=== PATIENT | female | born 1995 | race Caucasian/White ===

== ENCOUNTER 2017-01-05 21:10 | Emergency (ER) | payer OTHER ==
[2017-01-05 21:45] VITALS: BP 135/100; PULSE 74; TEMP 98.5; BMI 24.7
--- NOTE | 2017-01-05 22:01 | PDOC ---
History of Present Illness - General History Source: Patient Exam Limitations: No Limitations - History of Present Illness Initial Comments: 01/05/17 23:14 The patient is a 21 year old female, with no significant past medical history, who presents today complaining of chest pain beginning last night when sleeping. The patient reports that the chest pain is constant, sharp, 6/10 in severity, and non radiating. Patient states the chest pain is exacerbated secondary to coughing, laughing, and taking a deep breath. The chest pain is not exacerbated on exertion. Patient states that this is her first time experiencing these symptoms of chest pain. Denies shortness of breath. Denies nausea, vomiting, fever, chills. Denies any recent illness. Denies history of blood clots. Denies calf pain or lower extremity swelling and pain. Denies talking any oral contraceptives. Allergies: none reported <Karissa Doran - Last Filed: 01/05/17 23:14> <Elisha Barnhart - Last Filed: 01/06/17 00:03> - General Chief Complaint: Pain Stated Complaint: CHEST PAIN Time Seen by Provider: 01/05/17 21:56 Past History <Karissa Doran - Last Filed: 01/05/17 23:14> - Past Medical History Other medical history: pt denies - Psycho/Social/Smoking Cessation Hx Suicidal Ideation: No Smoking History: Never smoked Information on smoking cessation initiated: No Hx Alcohol Use: No Drug/Substance Use Hx: No Substance Use Type: None <Elisha Barnhart - Last Filed: 01/06/17 00:03> - Past Medical History Allergies/Adverse Reactions: Allergies Allergy/AdvReac Type Severity Reaction Status Date / Time No Known Allergies Allergy Verified 01/05/17 21:42 Review of Systems - Review of Systems Able to Perform ROS?: Yes Comments:: 01/05/17 23:15 GENERAL/CONSTITUTIONAL: No fever or chills. No weakness. HEAD, EYES, EARS, NOSE AND THROAT: No change in vision. No ear pain or discharge. No sore throat. CARDIOVASCULAR: +Chest pain. No shortness of breath. RESPIRATORY: No cough, wheezing, or hemoptysis. GASTROINTESTINAL: No nausea, vomiting, diarrhea or constipation. GENITOURINARY: No dysuria, frequency, or change in urination. MUSCULOSKELETAL: No joint or muscle swelling or pain. No neck or back pain. SKIN: No rash NEUROLOGIC: No headache, vertigo, loss of consciousness, or change in strength/ sensation. ENDOCRINE: No increased thirst. No abnormal weight change. HEMATOLOGIC/LYMPHATIC: No anemia, easy bleeding, or history of blood clots. ALLERGIC/IMMUNOLOGIC: No hives or skin allergy. <Karissa Doran - Last Filed: 01/05/17 23:14> *Physical Exam - Vital Signs Last Vital Signs Temp Pulse Resp BP Pulse Ox 98.5 F 74 20 135/100 100 01/05/17 21:42 01/05/17 21:42 01/05/17 21:42 01/05/17 21:42 01/05/17 21:42 <Karissa Doran - Last Filed: 01/05/17 23:14> - Vital Signs Last Vital Signs Temp Pulse Resp BP Pulse Ox 98.5 F 74 20 135/100 100 01/05/17 21:42 01/05/17 21:42 01/05/17 21:42 01/05/17 21:42 01/05/17 21:42 - Physical Exam Comments: GENERAL: Awake, alert, and fully oriented, in no acute distress HEAD: No signs of trauma EYES: PERRLA, EOMI, sclera anicteric, conjunctiva clear ENT: Auricles normal inspection, hearing grossly normal, nares patent, oropharynx clear without exudates. Moist mucosa NECK: Normal ROM, supple, no lymphadenopathy, JVD, or masses LUNGS: Breath sounds equal, clear to auscultation bilaterally. No wheezes, and no crackles HEART: Regular rate and rhythm, normal S1 and S2, no murmurs, rubs or gallops ABDOMEN: Soft, nontender, normoactive bowel sounds. No guarding, no rebound. No masses EXTREMITIES: Normal range of motion, no edema. No clubbing or cyanosis. No cords, erythema, or tenderness NEUROLOGICAL: Cranial nerves II through XII grossly intact. Normal speech, normal gait SKIN: Warm, Dry, normal turgor, no rashes or lesions noted. <Elisha Barnhart - Last Filed: 01/06/17 00:03> Heart Score/ECG Review - ECG Impressions Comment:: EKG 21:53- NSR 85 bpm, no acute ST/T changes <Elisha Barnhart - Last Filed: 01/06/17 00:03> ED Treatment Course - ADDITIONAL ORDERS Additional order review: Laboratory Results 01/05/17 22:10 Urine HCG, Qual Negative - Medications Given in the ED: ED Medications Discontinued Medications Generic Name Dose Route Start Last Admin Trade Name Macario PRN Reason Stop Dose Admin Ibuprofen 600 mg 01/05/17 22:31 01/05/17 22:44 Motrin - PO 01/05/17 22:32 600 mg ONCE ONE Administration <Karissa Doran - Last Filed: 01/05/17 23:14> *DC/Admit/Observation/Transfer - Attestations Scribe Attestion: 01/05/17 23:15 Documentation prepared by MARIUSZ Salinas, acting as medical social consultant for Elisha Barnhart MD. <Karissa Doran - Last Filed: 01/05/17 23:14> - Discharge Dispostion Admit: No <Elisha Barnhart - Last Filed: 01/06/17 00:03> Diagnosis at time of Disposition: Atypical chest pain - Discharge Dispostion Disposition: HOME Condition at time of disposition: Stable - Patient Instructions Printed Discharge Instructions: DI for Atypical Chest Pain
[2017-01-05] MEDS ORDERED: IBUPROFEN 600 MG TABLET (FP) PO ONE ×2 (22:31→22:43)
--- NOTE | 2017-01-06 13:26 | EKG ---
Test Reason : Blood Pressure : / mmHG Vent. Rate : 085 BPM Atrial Rate : 085 BPM P-R Int : 120 ms QRS Dur : 074 ms QT Int : 354 ms P-R-T Axes : 005 056 022 degrees QTc Int : 421 ms NORMAL SINUS RHYTHM NORMAL ECG NO PREVIOUS ECGS AVAILABLE BASELINE ARTIFACT Confirmed by REGINO BIANCHI, ELIZABETH ([id number]) on 01/06/2017 1:25:51 PM Referred By: Confirmed By:ELIZABETH LACY MD
== END 2017-01-06 00:33 | disposition home or self-care (01) ==
LOC: JER 21:10
DX: R07.89 Other chest pain (principal)
CPT/HCPCS: 71020-TC; 84703; 93005; 93010; 99282-25